=== PATIENT | female | born 1955 | race Two or more races ===

== ENCOUNTER 2025-05-20 12:59 | Emergency (ER) | payer OTHER ==
[~2025-05-20] VITALS: Ht 154.9 cm; Wt 67.6 kg
[2025-05-20] MEDS ORDERED: GLIPIZIDE XL10 MG (14:30)
[2025-05-20] MEDS ORDERED: ROSUVASTATIN CAL5 MG PO (14:31)
[2025-05-20] MEDS ORDERED: ATACAND32 MG (14:31)
[2025-05-20] MEDS ORDERED: AMLODIPINE-OLM1 EAC2 (14:32)
[2025-05-20] MEDS ORDERED: FARXIGA10 MG PO (14:33)
[2025-05-20] MEDS ORDERED: FAMOTIDINE/PF 20 MG/2 ML VIAL IV ONE (15:15)
[2025-05-20] MEDS ORDERED: KETOROLAC TROMETHAMINE 30 MG VIAL IV ONE (15:15)
[2025-05-20] MEDS ORDERED: 0.9 % SODIUM CHLORIDE 500 ML IV ONE (15:15)
[2025-05-20] MEDS ORDERED: ONDANSETRON HCL 2 MG/ML VIAL IV ONE (15:15)
[2025-05-20] MEDS ORDERED: KETOROLAC TROMETHAMINE 30 MG VIAL ONE (15:50)
[2025-05-20] MEDS ORDERED: ONDANSETRON HCL 2 MG/ML VIAL ONE (15:50)
[2025-05-20] MEDS ORDERED: FAMOTIDINE/PF 20 MG/2 ML VIAL ONE (15:51)
[2025-05-20 16:50] LABS: BASO % 0.7 % (0.1-1.2); EOS # 0.07 (0.04-0.54); EOS % 0.8 % (0.7-7.0); LYMPH # 2.12 (1.18-3.74); LYMPH % 23.2 % (19.3-53.1); MEAN PLATELET VOLUME 8.80 fl (9.4-12.4); MONO # 0.87 (0.24-0.82); MONO % 9.5 % (4.7-12.5); NEUT # 6.01 (1.56-6.13); NEUT % 65.6 % (34.0-71.1); RED CELL DISTRIBUTION WIDTH 12.4 % (11.6-14.4)
[2025-05-20 17:14] LABS: INR 1.05
[2025-05-20 17:20] LABS: ALT/SGPT 35.0 U/L (12-78); AST/SGOT 24.0 U/L (15-37); BILIRUBIN TOTAL 1.31 mg/dL (0.3-1.2); BUN CREA RATIO 19.0 (7.0-25.0); CREATININE SERUM 0.74 mg/dL (0.55-1.02); GFR 77.36; GLOBULINA 3.7 G/DL (2.4-3.5); GLUCOSE FASTING 113.0 mg/dL (65-100); OSMOLALITY SERUM 283.0 MOSM/KG (275-295)
[2025-05-20 17:32] LABS: URINE APPEARANCE Cloudy; URINE BILIRRUBIN Negative (NEGATIVE); URINE BLOOD Negative; URINE COLOR Yellow; URINE KETONE 15 (NEGATIVE); URINE LEUKOCYTE Trace; URINE NITRATE Positive; URINE PROTEIN Trace (NEGATIVE); URINE UROBILINOGEN 0.2 E.U./dl
[2025-05-20 17:35] LABS: URINE EPITHELIAL CELLS 100.3 uL (0.0-38.8); URINE RBC 6.3 uL (0.0-20.8); URINE WBC 56.7 uL (0.0-23.2)
[2025-05-20 17:55] LABS: URINE BACTERIA > 9821.5 uL (0.0-1933); URINE CAST 0.58 uL (0.0-1.40); URINE GLUCOSE 250 MG/DL (NEGATIVE)
[2025-05-20 17:56] LABS: TYPE CELLS SQUAMOUS
[2025-05-20] MEDS ORDERED: INTESTINEX680 M1 PO (19:45)
[2025-05-20] MEDS ORDERED: CIPRO500 MG PO (19:45)
[2025-05-20] MEDS ORDERED: DOLOGESIC 500-1 EACH PO (19:45)
[2025-05-20] MEDS ORDERED: METRONIDAZOLE500 MG PO (19:45)
[2025-05-20] MEDS ORDERED: PEPCID AC20 MG PO (19:46)
[2025-05-20] MEDS ORDERED: ONDANSETRON HCL4 MG PO (19:46)
== END 2025-05-20 20:17 ==
LOC: ER 13:38
PROVIDERS: Emergency Medicine
DX: K57.92 Diverticulitis of intestine, part unspecified, without perforation or abscess without bleeding (principal); R10.32 Left lower quadrant pain; R10.9 Unspecified abdominal pain; I10 Essential (primary) hypertension; E11.9 Type 2 diabetes mellitus without complications
CPT/HCPCS: 36415; 74177; 96365; 96366; 99284; J1885; J2405; J3490; J7042; Q9965